=== PATIENT | male | born 1945 | race Caucasian/White ===

== ENCOUNTER 2018-08-18 16:59 | Inpatient (IN) | payer MEDICARE ==
[~2018-08-18] VITALS: Ht 172.7 cm; Wt 65.9 kg
[~2018-08-18 16:59] MED LIST: AMBIEN5 MG PO; COREG 3.1253.125 MG PO; ENDOCET 7.5/3251 TAB PO; FISH OIL 1,0001 CA1 PO; HYDROCODONE-APA1 TAB PO; MULTAQ400 MG PO; PRADAXA150 MG PO; PRISTIQ50 MG PO; VITAMIN B-122500 MCG PO; VITAMIN D31000 UNI2 PO; WELLBUTRIN SR150 MG PO; XANAX0.5 MG PO
[2018-08-18 17:48] LABS: BASOPHILS 0.9 % (0-2); EOSINOPHILS 4.3 % (0-7); HEMATOCRIT 41.1 % (42.0-54.0); HEMOGLOBIN 14.4 g/dL (13.5-17.5); IMMATURE GRANULOCYTES 0.1 % (0-5); MCH 34.7 pg (26.0-34.0); MEAN PLATELET VOLUME 9.6 fL (7.4-10.4); MONOCYTES 5.2 % (2-11); NEUTROPHILS 58.5 % (40-80); RBC 4.15 10x6/uL (4.20-6.10); RDW 11.9 % (11.5-14.5); WBC 6.9 10x3/uL (4.8-10.8)
[2018-08-18 18:01] LABS: PLATELET COUNT 277 10x3/uL (130-400)
[2018-08-18 18:05] LABS: ANION GAP 4.9 mmol/L (8-16); BILIRUBIN - TOTAL 0.91 mg/dL (0.2-1.3); CALCIUM 8.9 mg/dL (8.5-10.1); CARBON DIOXIDE 37.2 mmol/L (21.0-32.0); CREATININE - SERUM 1.2 mg/dL (0.6-1.3); MAGNESIUM - SERUM 2.5 mg/dL (1.8-2.4); POTASSIUM - SERUM 4.1 mmol/L (3.5-5.1); PROTEIN - SERUM 7.3 g/dL (6.4-8.2)
[2018-08-18 19:06] LABS: T4 THYROXINE 9.2 ug/dL (4.7-13.3); THYROID STIMULATING HORMONE 1.96 uIU/mL (0.36-3.74)
[2018-08-18 20:16] VITALS: BP 133/82; BMI 21.4
--- NOTE | 2018-08-18 21:11 | NUR ---
NEW ADMIT TO DOCTOR HERNANDEZ ON HALFWAY FROM [facility] FOR ALTERED MENTAL STATUS. PATIENT HAS BEEN EMOTIONALLY STRESSED, DEPRESSED, AND HAS BEEN HAVING SOME MEMORY ISSUES. UPON ARRIVAL TO UNIT, PATIENT IS CALM AND COOPERATIVE [facility] ADMISSION ASSESSMENT. COMPLAINS OF ANXIETY. CONSENT TO TREAT RECEIVED FROM GAYATHRI PRITCHETT, PATIENT'S AND POA. COPY OF POA PAPERWORK REQUESTED. CODE STATUS DISCUSSED WITH FAMILY. PATIENT IS A FULL CODE. CODE WORD IS REBA. INFORMATION ABOUT UNIT, PHONE CALLS, AND VISITATION GIVEN TO . PATIENT ORIENTED TO ROOM, UNIT, AND CALL SOMERS SYSTEM. PATIENT RESTING IN BED WITH EYES OPEN AT THIS TIME. CONTINUE TO MONITOR.
--- NOTE | 2018-08-18 21:16 | NUR ---
Patient given Ativan 0.5 mg PO for anxiety at 21:21.
--- NOTE | 2018-08-18 22:25 | NUR ---
REASSESS PATIENT, NO ANXIETY NOTED , PATIENT SLEEPING QUIETLY, RESPIRATIONS EVEN AND UNLABORED.
[2018-08-19 07:42] LABS: CHOL - HDL RATIO 2.1 ratio (2.3-4.9); LDL-HDL RATIO 0.9 ratio (1.5-3.5); THYROID STIMULATING HORMONE 1.9 uIU/mL (0.36-3.74)
[2018-08-19 08:00] VITALS: BP 127/85
[2018-08-19 10:42] VITALS: BMI 21.4
--- NOTE | 2018-08-19 11:00 | NUR ---
PATIENT IS AWAKE AND ALERT. CALM AND COOPERATIVE WITH CARE AND ASSESSMENT. MEDICATION COMPLIANT. NO AGGRESSION NOTED. REDIRECT AND REORIENT NEEDED. WILL CONTINUE POC.
[2018-08-19 14:37] VITALS: Ht 172.7 cm; Wt 65.9 kg
[2018-08-19 22:21] VITALS: BP 105/72
--- NOTE | 2018-08-20 02:00 | NUR ---
RECEIVED IN DAYROOM. SOCIALIZING WITH PEERS. CALM AND COOPERATIVE WITH CARE AND ASSESSMENT. NO ANXIETY. REDIRECT AND REORIENT NEEDED. RESTING IN BED WITH EYES CLOSED AT THIS TIME. CONTINUE PLAN OF CARE.
[2018-08-20 06:14] LABS: VITAMIN D 25 HYDROXY 32.1 ng/mL (30.0-100.0)
[2018-08-20 07:21] LABS: RAPID PLASMA REAGIN Non Reactive (Non Reactive)
[2018-08-20 09:08] VITALS: BP 118/62
--- NOTE | 2018-08-20 10:51 | NUR ---
SW ATTEMPTED PHONE CALL TO PT'S , ASHLEY, AT [phone] ON 08/19 AND 08/20 TO GET INFORMATION FOR ASSESSMENT. NO WAY TO LEAVE VOICEMAIL. PHONE CONTINUOUSLY RINGS.
--- NOTE | 2018-08-20 12:00 | NUR ---
B) The patient is pleasant, he is socializing with staff and peers. he ambulates independently. He has poor insight into his situation. I) Provide prescribed meds. Encourage groups and activities. R) The patient is compliant with his meds, he did ask what each pill is for and he is glad that he is taking them. P) Continue POC.
--- NOTE | 2018-08-20 14:46 | HP ---
PATIENT: KAROLINA PRITCHETT JR MEDICAL RECORD: [id number] ACCOUNT: [id number] LOCATION:[facility] Low[facility] : 43 ADMISSION DATE: 08/18/18 PCP: MYA FRANCOIS DO HISTORY AND PHYSICAL EXAMINATION IDENTIFYING DATA: The patient is 73 years old and he is admitted to the hospital on a voluntary basis. CHIEF COMPLAINT: Agitation. HISTORY OF PRESENT ILLNESS: The patient has been at home with his . He has an established diagnosis of dementia. Apparently, he has become quite confused and at times agitated. The primary care doctor contacted us and briefed this on the case and we approved him for admission after being medically cleared in the Emergency Room. The patient's symptoms have been present for at least a couple of years now. He has been diagnosed with a dementia in the past and has been treated for that. He denies any thoughts of harming himself or others. He freely admits that he has been very upset about not being able to drive and that there has been some conflicts with his over this. He denies that he would actively seek to harm himself or others. PAST MEDICAL HISTORY: Significant for atrial fibrillation and hypertension. PAST PSYCHIATRIC HISTORY: Significant for depression and anxiety along with the diagnosis of dementia. ALLERGIES: No known drug allergies. CURRENT MEDICATIONS: Include Pristiq, Coreg, Pradaxa, Endocet, Multaq, Wellbutrin and multiple vitamins. FAMILY HISTORY: Significant for hypertension and cancer. SOCIAL HISTORY: The patient is a nondrinker, nonsmoker. He is a retired [employer] employee. He has been to the same woman for many years and apparently has functioned well both socially and occupationally. MENTAL STATUS EXAMINATION: The patient is awake, alert and oriented to person, place and somewhat to time and situation. His mood is anxious. His affect is constricted. Thought processes are circumstantial. Memory, concentration, and abstraction abilities are at least moderately impaired and he denies any active intent to harm himself or others as well as active psychotic symptoms. ASSETS: Supportive family members. LIABILITIES: Limited insight. DIAGNOSTIC IMPRESSION: AXIS I: Vascular dementia. AXIS II: None. AXIS III: Atrial fibrillation, hypertension. AXIS IV: Moderate. AXIS V: Global assessment of functioning is 35. PLAN: At this time, the patient is admitted to the hospital for a comprehensive HISTORY AND PHYSICAL [id number] KAROLINA PRITCHETT JR medical, psychological, and social evaluation. He will be treated with both mood stabilizing and memory enhancing medications. His long-term prognosis is guarded. Brief supportive and educational interventions were made. TRANSINT:[id number] Voice Confirmation ID: [id number] DOCUMENT ID: [id number] FRANCIE HERNANDEZ MD at 1446 CC: [id number] DICTATION DATE: 08/19/18 164 CHOKE SETTER: 08/19/18 1704 ADM IN [place] [id number] [place] [id number]
--- NOTE | 2018-08-20 16:15 | NUR ---
The patient's spouse requested to speak to this nurse about the patient's medications. Did provide a printed MAR for her. She is concerned that the patient is off of his antidepressants. Did explain to her that staff and the Dr.'s are monitoring hoim closely and he does have as needed medications. The Dr.'s will prescribe medications as they need to based on the patient's behavior. We will continue to monitor and document. The patient said "I am concerned because he does have depression as do I from time to time." The patient also has chosen to take his wedding band home with her. Mavis Au the Dog Warden had it in her office and she did give it to the patient's spouse.
--- NOTE | 2018-08-20 19:45 | NUR ---
RECEIVED IN DAYROOM. SOCIALIZING WITH PEERS. CALM AND COOPERATIVE WITH CARE AND ASSESSMENT. PLEASANTLY CONFUSED. REDIRECT AND REORIENT NEEDED. CONTINUES TO SOCIALIZE WITH HIS PEERS AT THIS TIME. CONTINUE PLAN OF CARE.
[2018-08-20 20:11] VITALS: BP 127/82
[2018-08-21 08:44] LABS: APPEARANCE CLEAR (CLEAR); BILIRUBIN NEGATIVE (NEGATIVE); COLOR YELLOW (YELLOW); GLUCOSE NEGATIVE (NEGATIVE); KETONE NEGATIVE (NEGATIVE); NITRITE NEGATIVE (NEGATIVE); PROTEIN NEGATIVE (NEGATIVE); UROBILINOGEN NORMAL (NORMAL)
[2018-08-21 08:46] LABS: BACTERIA FEW /hpf (NONE SEEN); EPITHELIAL CELLS 0-5 /hpf (0-5); RED CELLS - URINE 0-5 /hpf (0-5); WHITE CELLS - URINE 0-5 /hpf (0-5)
[2018-08-21 09:37] VITALS: BP 132/89
--- NOTE | 2018-08-21 10:15 | NUR ---
The patients spouse said she would like to bring the patient a pair of jeans that fit him and his glasses. She will bring them in about an hour she stated.
[2018-08-21 11:12] LABS: UDS - AMPHET NEGATIVE QUAL (NEGATIVE); UDS - BARB NEGATIVE QUAL (NEGATIVE); UDS - BENZO NEGATIVE QUAL (NEGATIVE); UDS - COCAINE NEGATIVE QUAL (NEGATIVE); UDS - OPIATE NEGATIVE QUAL (NEGATIVE); UDS - PCP NEGATIVE QUAL (NEGATIVE); UDS - THC NEGATIVE QUAL (NEGATIVE)
--- NOTE | 2018-08-21 15:55 | PN ---
PATIENT:KAROLINA PRITCHETT JR MEDICAL RECORD: [id number] LOCATION:[facility] [address] ADMISSION DATE: 08/18/18 PROGRESS NOTE DATE OF SERVICE: 08/20/2018 SUBJECTIVE: The patient's case was discussed with staff. He has no new complaint. OBJECTIVE: The patient is in good behavioral control. He has not been aggressive. He has limited insight about his situation and certainly has significant cognitive impairment. ASSESSMENT: Vascular dementia. PLAN: The patient is going to be started on Aricept to assist with his cognitive impairment. He will be monitored for clinical changes associated with its use. TRANSINT:[id number] Voice Confirmation ID: [id number] DOCUMENT ID: [id number] FRANCIE HERNANDEZ MD at 1555 CC: [id number] DICTATION DATE: 08/20/18 1538 DENTAL DETAIL REPRESENTATIVE: 08/20/18 1556 ADM IN [place] [id number] [place] [id number]
[2018-08-21 19:47] VITALS: BP 131/72
--- NOTE | 2018-08-22 04:04 | NUR ---
B) Patient is alert and oriented to person and place, calm and cooperative, I) Administered scheduled medications as ordered, R) Mediation compliant, pleasant and friendly toward staff, P) Continue plan of care.
--- NOTE | 2018-08-22 07:35 | NUR ---
B) The patient is pleasant and polite, he says nice things to everyone. Compliments others on their behavior or their professionalism. He ambulates independently. He does have a sight limp. He has not shown any anxiety this am. I) Provide prescribed medications. Encourage positive coping skills when he becomes anxious. R) The patient is compliant with meds and unit milieu. P) Continue POC.
[2018-08-22 07:55] VITALS: BP 123/85
--- NOTE | 2018-08-22 11:38 | PN ---
PATIENT:KAROLINA PRITCHETT JR MEDICAL RECORD: [id number] LOCATION:[facility] ADMISSION DATE: 08/18/18 PROGRESS NOTE DATE OF SERVICE: 08/21/2018 SUBJECTIVE: The patient's case was discussed with staff. He has no new complaint. OBJECTIVE: The patient is in good behavioral control with limited insight about his condition. He tolerates his medicines reasonably well. He has not been aggressive. ASSESSMENT: Vascular dementia. PLAN: Supportive and educational interventions were made. Long-term prognosis is guarded. TRANSINT:[id number] Voice Confirmation ID: [id number] DOCUMENT ID: [id number] FRANCIE HERNANDEZ MD at 1138 CC: [id number] DICTATION DATE: 08/21/18 1637 DINKEY ENGINE MECHANIC: 08/21/[id number] ADM IN [place] [id number] [place] [address]
[2018-08-22] MEDS ORDERED: LYRICA75 MG PO (11:50)
[2018-08-22] MEDS ORDERED: DONEPEZIL HCL5 MG PO (11:50)
--- NOTE | 2018-08-22 11:50 | NUR ---
Dr. Avendano discharged the patient after he met with staff and the patient. Did call the patient's spouse and let her know the decision. She is a bit nervous. She wants him to come home, but she is concerned. She wants to know his prognosis and does he need a custodial etc. Did explain to her that at this time Dr. Avendano does not feel the need for a custodial. Explained to her that the disease is a progressing disease. Explained to her that she will need to speak to him in short concise sentences and not try to argue with him. Will go over some more teaching when she arrives.
--- NOTE | 2018-08-22 14:20 | NUR ---
The patient's spouse is here to pick the patient up, she is anxious about her next steps. Encouraged her to call the [employer] Overseer so that he can help her out with some financial knowledge. Also explained ways to speak to the patient and not to argue. Let her know she can bring the patient back if he does worsen or become aggrssive. Spoke to her about [facility], but she said "He tried it and did not like it." She said "I just don't know what to do, I've called everywhere." Acknowledged her frustration. Faxed d/c paperwork to Dr. Andujar, did go over the medications, encouraged to make an appt with Dr. Andujar within one week. His belongings are accounted for and given to the spouse. The patient is now d/c'd off of [facility].
--- NOTE | 2018-08-23 10:17 | PN ---
PATIENT:KAROLINA PRITCHETT JR MEDICAL RECORD: [id number] LOCATION:[facility] ADMISSION DATE: 08/18/18 PROGRESS NOTE DATE OF SERVICE: 08/22/2018 SUBJECTIVE: The patient's case was discussed with staff. He has no new complaint. OBJECTIVE: The patient has had no aggressive behavior. He is in good behavioral control. I see no evidence of acute dangerousness. ASSESSMENT: Vascular dementia. PLAN: The patient will be transitioned out of the hospital today. His long-term prognosis is guarded. Supportive and educational interventions were made. Followup is to be with his primary care physician. TRANSINT:[id number] Voice Confirmation ID: [id number] DOCUMENT ID: [id number] FRANCIE HERNANDEZ MD at 1017 CC: [id number] DICTATION DATE: 08/22/18 1149 COTTON ACREAGE MEASURER: 08/22/18 1205 DIS IN 08/22/18 [place] [address] [place] [address]
--- NOTE | 2018-08-25 15:50 | DS ---
PATIENT:KAROLINA PRITCHETT JR :41 MEDICAL RECORD: [id number] DISCHARGE SUMMARY ADMISSION DATE: 08/18/18 DISCHARGE DATE: 08/22/18 IDENTIFYING DATA: The patient is 73 years old and he is admitted to the hospital on a voluntary basis because of agitation. The patient had been at home with his . He has an established diagnosis of dementia. Apparently, he had become confused and on some occasions agitated with her. The primary care doctor contacted us and briefed us on the case and we approved him for admission after he was medically cleared in the Emergency Room. The patient's symptoms have been present for at least a couple of years now and he was diagnosed with dementia about a couple of years ago. He denied any thoughts of self-harm and any thoughts of harming others. He denied psychotic symptoms. He freely admitted that he had been upset and frustrated about not being able to drive and that he does have conflicts with his over various minor or insignificant things. He certainly had no psychotic symptoms or symptoms that were acutely dangerous to himself or others. HOSPITAL COURSE: The patient was admitted to the hospital and fully evaluated from both a medical, psychological, and social standpoint. He was treated with both memory enhancing and mood stabilizing medications and showed rapid improvement. It was subsequently felt that he was no longer an acute danger to himself or others. The patient and his did not want any kind of placement. They both wanted to live together in their own home and did not want to go to assisted living and did not want to be . He was sent home and was tolerating his medicines well. DISCHARGE DIAGNOSES: AXIS I: Vascular dementia. AXIS II: None. AXIS III: Atrial fibrillation, hypertension. AXIS IV: Moderate. AXIS V: Global Assessment Of Functioning is 40. PLAN: At the time of discharge, the patient was not acutely dangerous to himself or others. The was given fairly extensive instructions about how to handle him with various examples including not trying to argue him back, to remembering something he cannot remember, giving him very small tasks that can be completed independently rather than giving him an overall global task giving him a structure and consistency and predictability to his day and events. [facility]. The patient's long-term prognosis is guarded. Unfortunately, he has a progressive dementia and it will worsen. At this time, there is no evidence of acute dangerousness and followup will be with his primary care physician. TRANSINT:[id number] Voice Confirmation ID: [id number] DOCUMENT ID: [id number] DISCHARGE SUMMARY REPORT [id number] KAROLINA PRITCHETT JR, PETER MD at 1550 CC: [id number] DICTATION DATE: 08/24/18 1536 ECONOMICS FACULTY MEMBER: 08/25/18 0822 DIS IN 08/22/18 [place] [id number] [place] [id number]
== END 2018-08-22 14:20 | disposition home or self-care (01) | DRG 884 ==
LOC: D.ER 16:59 → D.PSYCH 19:28
PROVIDERS: Family Medicine; ADMIT Psychiatry & Neurology Psychiatry; ATTEND Psychiatry & Neurology Psychiatry
DX: F03.90 Unspecified dementia, unspecified severity, without behavioral disturbance, psychotic disturbance, mood disturbance, and anxiety (principal); F01.50 Vascular dementia, unspecified severity, without behavioral disturbance, psychotic disturbance, mood disturbance, and anxiety; F32.9 Major depressive disorder, single episode, unspecified; F41.9 Anxiety disorder, unspecified; E53.8 Deficiency of other specified B group vitamins; E55.9 Vitamin D deficiency, unspecified; I48.91 Unspecified atrial fibrillation; I10 Essential (primary) hypertension; G62.9 Polyneuropathy, unspecified

== ENCOUNTER 2018-12-31 12:13 | Inpatient (IN) | payer MEDICARE ==
[~2018-12-31] VITALS: Ht 167.6 cm; Wt 60.2 kg
[~2018-12-31 12:13] MED LIST changes: +DONEPEZIL HCL5 MG PO; +LYRICA75 MG PO
[2018-12-31 15:42] VITALS: BP 114/77
--- NOTE | 2018-12-31 18:44 | NUR ---
PATIENT ARRIVED TO UNIT AT 1400 VIA MODIFIED MOBILE NON-EMERGENCY MEDICAL TRANSPORTATION BY MILTON WRIGHT. PATIENT ARRIVE STABLE, WITH SUITCASE. PATIENT HAD MEDICATIONS IN SUITCASE. PATIENT HAD MEDICATIONS IN SUITCASE AND MEDICAITIONS WAS COUNTED AND WAS SENT TO PHARMACY. PT HAS GLASSES ON, DENTURES. PATIENT SKIN WAS WARM, DRY TO THE TOUCH. NO BRUISES NOTED. PATIENT WAS SENT BY KRISTIE GOLDSMITH FOR GETTING INTO OTHER PEOPLE CARS, PUTTING METAL IN THE MICROWAVE AND BLOWING UP A MEASUREMENT CUP ON THE STOVE WHILE LIVING AT [facility]. PT IS ALERT AND ORIENTED TO SELF ONLY. CONFUSION NOTED. PT IS PLESANT WITH STAFF. ASSESSMENT, VITALS AND WEIGHT OBTAINED. ADMIT WEIGHT 130.0 IBS. PATIENT CODEWORD: APS. PATIENT CODE STATUS IS FULL CODE NO PAPERS STATING OTHERWISE.
--- NOTE | 2018-12-31 18:44 | NUR ---
MEDS SENT TO PHARMACY.
--- NOTE | 2018-12-31 18:44 | NUR ---
PATIENT ARRIVED TO UNIT AT 1400 VIA MODIFIED MOBILE NON-EMERGENCY MEDICAL TRANSPORTATION BY MILTON WRIGHT. PATIENT ARRIVE STABLE, WITH SUITCASE. PATIENT HAD MEDICATIONS IN SUITCASE AND MEDICATIONS WAS COUNTED AND WAS SENT TO THE PHARMACY. PT HAS GLASSES ON, DENTURES. PATIENT SKIN AND DRY WARM TO THE TOUCH. NO BRUISES NOTED. PATIENT SENT BY KRISTIE FLORIAN FOR GETTING INTO OTHER PEOPLES CARS, PUTTING METAL INTO THE MICROWAVE AND BLOWING UP A MEASUREING CUP ON THE STOVE. PT IS ALERT AND ORIENTED TO SELF ONLY. PT IS PLESANT WITH STAFF. ASSESSMENT, VITALS AND WEIGHT OBTAINED. ADMIT WEIGHT 130.0 LBS. PATIENT CODE STATUS IS FULL NO PAPERWORK TO STATE OTHERWISE. CODEWORD: KRISTIE.
[2018-12-31 20:20] VITALS: BP 118/75
--- NOTE | 2019-01-01 04:08 | NUR ---
B.) PT IS ALERT AND ORIENTED TO SELF AND SITUATION. HE IS PLEASANT AND AMBULATES WITHOUT ASSISTANCE. HE IS ABLE TO MAKE NEEDS KNOWN. I.) REDIRECT OFTEN. PROVIDE PM MEDICATIONS. R.) VERBALIZES UNDERSTANDING. COMPLIANT WITH ALL MEDICATIONS. P.) CONTINUE PLAN OF CARE
[2019-01-01 07:57] LABS: BASOPHILS 0.3 % (0-2); EOSINOPHILS 3.4 % (0-7); HEMATOCRIT 42.8 % (42.0-54.0); HEMOGLOBIN 15.2 g/dL (13.5-17.5); IMMATURE GRANULOCYTES 0.1 % (0-5); LYMPHOCYTES 21.1 % (15-50); MCH 34.8 pg (26.0-34.0); MCHC 35.5 g/dL (31.0-37.0); MCV 97.9 fL (80.0-100.0); MONOCYTES 7.2 % (2-11); NEUTROPHILS 67.9 % (40-80); PLATELET COUNT 247 10x3/uL (130-400); RBC 4.37 10x6/uL (4.20-6.10); RDW 12.1 % (11.5-14.5); WBC 7.6 10x3/uL (4.8-10.8)
[2019-01-01 08:41] LABS: ALKALINE PHOSPHATASE 41 U/L (46-116); ALT (SGPT) 17 U/L (10-68); BILIRUBIN - TOTAL 1.45 mg/dL (0.2-1.3); CALC OSMOLALITY 284 mosm/kg (275-300); CALCIUM 8.9 mg/dL (8.5-10.1); CARBON DIOXIDE 30.4 mmol/L (21.0-32.0); CHLORIDE - SERUM 106 mmol/L (98-107); CHOL - HDL RATIO 2.4 ratio (2.3-4.9); CHOLESTEROL, TOTAL 203 mg/dL (0-200); GLUCOSE 99 mg/dL (74-106); HDL CHOLESTEROL 84 mg/dL (32-96); LDL CHOLESTEROL 107 mg/dL (0-100); LDL-HDL RATIO 1.3 ratio (1.5-3.5); POTASSIUM - SERUM 4.4 mmol/L (3.5-5.1); PROTEIN - SERUM 7.2 g/dL (6.4-8.2); SODIUM 142 mmol/L (136-145); TRIGLYCERIDE 64 mg/dL (30-200); UREA NITROGEN 17 mg/dL (7-18); eGFR NON AFRICAN AMERICAN 77 mL/min (90-120)
[2019-01-01 09:24] VITALS: BMI 19.2
[2019-01-01 09:36] VITALS: BP 104/73
[2019-01-01 16:42] VITALS: Ht 167.6 cm; Wt 60.2 kg
[2019-01-01 17:34] LABS: APPEARANCE CLEAR (CLEAR); COLOR YELLOW (YELLOW)
[2019-01-01 17:35] LABS: BILIRUBIN NEGATIVE (NEGATIVE); GLUCOSE NEGATIVE (NEGATIVE); KETONE NEGATIVE (NEGATIVE); NITRITE NEGATIVE (NEGATIVE); PROTEIN NEGATIVE (NEGATIVE); UROBILINOGEN NORMAL (NORMAL)
[2019-01-01 21:26] VITALS: BP 90/71
--- NOTE | 2019-01-01 21:33 | NUR ---
PATIENT IS CONFUSED AT TIMES, CAN MAKE NEEDS KNOWN, COMPLIANT WITH MEDS, WILL FOLLOW POC
--- NOTE | 2019-01-02 08:21 | NUR ---
B) The patient is awake and he is alert, he has poor short term memory recall and poor insight into his situation. He interacts well with staff. He does well with the unit milieu. He ambulates independently. I) Provide prescribed meds. R) The patient is compliant with meds. P) Continue POC.
[2019-01-02 19:05] VITALS: BP 113/74
[2019-01-02 20:36] VITALS: BP 110/71
--- NOTE | 2019-01-02 22:53 | NUR ---
PATIENT IS CONFUSED, PLEASANT, CAN MAKE NEEDS KNOW, HAS TO BE REDIRECTED AT TIMES. COMPLIANT WITH MEDS. WILL FOLLOW POC
[2019-01-03 08:00] VITALS: BP 103/74
--- NOTE | 2019-01-03 16:47 | NUR ---
PT IS AWAKE AND ALERT. CALM AND COOPERATIVE WITH ASSESSMENT. NO BEHAVIORS NOTED. MED COMPLIANT. REDIRECT AND REORIENT NEEDED. FALL PRECAUTIONS IN PLACE. [facility]IGH CPOC.
--- NOTE | 2019-01-03 20:29 | NUR ---
RECEIVED IN DAYROOM. SITTING IN A CHAIR WITH PEERS AT HIS SIDE. CALM AND COOPERATIVE WITH CARE AND ASSESSMENT. REDIRECT AND REORIENT NEEDED. CONTINUES TO SIT QUIETLY IN DAYROOM. CONTINUE PLAN OF CARE
[2019-01-03 22:48] VITALS: BP 95/38
[2019-01-04 08:00] VITALS: BP 106/70
--- NOTE | 2019-01-04 16:20 | NUR ---
PT IS AWAKE AND ALERT TO PERSON ONLY. CALM AND COOPERATIVE WITH ASSESSMENT. PT HAS STTEMPTED TO CHEEK MEDICATIONS AT TIMES. PT MEDS CRUSHED IN APPLESAUCE. PT TOLERATED WELL. PT IS VERY CONFUSED, HAS NO INSIGHT ABOUT SITUATION. REDIRECT AND REORIENT NEEDED. FALL PRECAUTIONS IN PLACE. WILL CPOC.
[2019-01-04 20:23] VITALS: BP 98/67
--- NOTE | 2019-01-04 22:10 | NUR ---
RECEIVED IN DAYROOM. SITTING IN A CHAIR WITH PEERS BY HIS SIDE. CALM AND COOPERATIVE WITH CARE AND ASSESSMENT. REDIRECT AND REORIENT NEEDED. CONTINUES TO SIT QUIETLY IN A CHAIR. CONTINUE PLAN OF CARE
[2019-01-05 08:00] VITALS: BP 105/65
--- NOTE | 2019-01-05 12:52 | NUR ---
PT IS AWAKE AND ALERT TO PERSON ONLY. PT IS VERY CONFUSED. PT ATTEMPTS TO CHEEK HIS MEDS AT TIMES. MEDS CRUSHED. CALM AND COOPERATIVE WITH ASSESSMENT. REDIRECT AND REORIENT NEEDED. FALL PRECAUTIONS IN PLACE. WILL CPOC.
[2019-01-05 20:10] VITALS: BP 148/75
--- NOTE | 2019-01-05 22:31 | NUR ---
RECEIVED IN DAYROOM. WALKING ABOUT AT TIMES SOCIALIZING WITH PEERS. CALM AND COOPERATIVE WITH CARE AND ASSESSMENT. CONFUSED. REDIRECT AND REORIENT NEEDED. RESTING IN BED WITH EYES CLOSED AT THIS TIME. CONTINUE PLAN OF CARE
[2019-01-06 09:11] VITALS: BP 123/75
--- NOTE | 2019-01-06 13:21 | NUR ---
PATIENT IS ALERT WITH CONFUSION NOTED. CALM AND COOPERATIVE WITH CARE AND ASSESSMENT. MEDICATION COMPLIANT. REDIRECT AND REORIENT NEEDED. NO BEHAVIORS NOTED. FALL PRECAUTIONS IN PLACE. WILL CPOC.
[2019-01-06 20:55] VITALS: BP 110/75
--- NOTE | 2019-01-07 01:40 | NUR ---
REC'D SITTING IN THE DAYROOM. DISORIENTED TO TIME. RELATES HE HAS DEMENTIA AND HAS TROUBLE REMEMBERING. RELATES HIS TOLD HIM HE IS NOT THE MAN SHE AND HAS NOT HAD CONTACT WITH HIM SINCE HIS ADMISSION. STILL AWARE OF HIS SURROUNDINGS HOWEVER DOES REALIZE HIS MEMORY IS NOT WHAT IT WAS. RELATES HE FEELS SHE IS SEEING SOMEONE ELSE. WOULD LIKE TO CALL AND SPEAK WITH HIS CHELDREN IF THE NUMBERS CAN BE FOUND. TOLD PATIENT WOULD CHECK WITH LUCY THE COMPUTER ANALYST AND SEE IF WE CAN FIND HIS CHILDREN'S PHONE NUMBER. PT RELATED HE SURE WOULD APPRECIATE IT. PLEASANT AND COOPERATIVE WITH UNIT [facility]. ADMINISTER MEDS PER ORDERS Q SHIFT AND MOMITOR COMPLIANCE. REORIENT NEEDED. MED COMPLIANT. REORIENTS HOWEVER IS FORGETFUL AND REQUIRES INTERMITTENT REORIENTATION. CONTINUE POC AND PROVIDE SAFE ENVIRONMENT.
--- NOTE | 2019-01-07 08:12 | NUR ---
B) The patient is calm, but he is confused. He has poor insight into his situation and he realizes his memory is poor. A female patient was getting to close to him and staff had to tell her to back away and that he was . The patient said "Yes, she's right I am , but probably not for long." brine process operator said that the patient told them that his told him that he was not the same man she and he said "I know I am not." He ambulates independently. I) Provide prescribed meds. R) The patient is compliant with meds and unit milieu. He needs encouragement to interact in groups and activities. P) Continue POC.
[2019-01-07 09:26] VITALS: BP 114/72
--- NOTE | 2019-01-07 12:37 | NUR ---
NUTRITION F/U PT TOLERATING REG DIET AND ENSURE WITH MEALS. 100% INTAKE. STABLE WT. WILL CONTINUE TO PROVIDE DIET/ENSURE AND MONITOR. RD FOLLOWING
[2019-01-07 20:01] VITALS: BP 97/71
--- NOTE | 2019-01-07 23:17 | NUR ---
PATIENT IS VERY CONFUSED, HAS TO SHOWN WHERE HIS ROOM IS DAILY, HE INTERACTED WITH ONE OTHER PATIENT THIS EVENING APPROPRIATELY, COMPLIANT WITH MEDS. GOOD AFFECT. WILL FOLLOW POC
--- NOTE | 2019-01-08 07:55 | NUR ---
B) The patient is awake and alert he is confused as he puts his clothes on wrong, shirts on his legs etc. He has poor insight into his situation. He is pleasant and has not shown any aggression. I) Provide prescribed meds. R) The patient is compliant with meds. P) Continue POC.
[2019-01-08 08:30] VITALS: BP 114/73
--- NOTE | 2019-01-08 14:54 | NUR ---
DR. ARORA ORDERED AN INGUINAL HERNIA TRUSS. FAXED AN ORDER TO [facility].
[2019-01-08 20:00] VITALS: BP 104/53
--- NOTE | 2019-01-09 00:30 | NUR ---
B.) PT IS ALERT AND ORIENTED TO SELF ONLY. HE HAS POOR INSIGHT INTO HIS SITUATION. HE IS PLEASANT WITH STAFF AND PEERS. HE IS ABLE TO AMBULATE BY HISELF. I.) PROVIDED PM MEDICATIONS. REDIRECT OFTEN. R.) COMPLIANT WITH ALL MEDICATIONS. EASY TO REDIRECT BUT QUICKLY BECOMES CONFUSED AGAIN. P.) CONTINUE PLAN OF CARE
--- NOTE | 2019-01-09 07:51 | NUR ---
B) The patient is awake and alert. He is pleasant and talkative with staff and peers. He ambulates independently. He is confused and has poor insight into his situation. He knows his name, but not place or time. I) Provide prescribed meds. R) The patient is compliant with meds and unit milieu. P) Continue POC.
[2019-01-09 08:00] VITALS: BP 112/72
--- NOTE | 2019-01-09 10:27 | NUR ---
Turner hayes came to see the patient and the associate says he will back in a little bit to bring the patient his hernia truss.
--- NOTE | 2019-01-09 15:56 | NUR ---
The family requests that the patient's fingernails be trimmed while he is calm. Will leave a note so that the staff can pass this message onto Patricia Joshi
[2019-01-09 21:05] VITALS: BP 106/68
--- NOTE | 2019-01-09 22:27 | NUR ---
B.) PT IS ALERT AND ORIENTED TO SELF AND SITUATION. HE IS ABLE TO AMBULATE WITHOUT ASSISTANCE. HE IS CALM, COOPERATIVE AND SOCIALIZING WITH PEERS. I.) PROVIDED PM MEDICATIONS. R.) COMPLIANT WITH ALL MEDICATIONS. P.) CONTINUE PLAN OF CARE
[2019-01-10 08:00] VITALS: BP 110/77
--- NOTE | 2019-01-10 15:00 | NUR ---
APPLIED HERNIA SUPPORT DEVICE TO ABDOMEN. PT C/O DISCOMFORT AND REFUSED TO KEEP DEVICE IN PLACE.
--- NOTE | 2019-01-10 15:31 | NUR ---
B) PATIENT IS ORIENTED TO SELF AND SITUATION. SHE AMBULATES INDEPENDENTLY. CALM AND COOPERATIVE WITH ASSESSMENT. SOCIALIZES WITH PEERS. I) ADMINISTER PRESCRIBED MEDICATIONS. REDIRECT AND REORIENT NEEDED. R) COMPLIANT WITH MEDICATIONS. P) CONTINUE PLAN OF CARE.
--- NOTE | 2019-01-10 20:24 | NUR ---
RECEIVED IN DAYROOM. SITTING IN A CHAIR WITH PEERS AT HIS SIDE. SOCIALIZING WITH PEERS AT TIMES. CALM AND COOPERATIVE WITH CARE AND ASSESSMENT. REDIRECT AND REORIENT NEEDED. CONTINUES TO SIT CALMLY IN DAYROOM. CONTINUE PLAN OF CARE
[2019-01-10 22:56] VITALS: BP 116/68
[2019-01-11 08:00] VITALS: BP 114/68
--- NOTE | 2019-01-11 09:00 | NUR ---
B) PATIENT IS AWAKE AND ALERT, BUT VERY CONFUSED. CALM AND COOPERATIVE WITH CARE AND ASSESSMENT. SOCIALIZES WITH PEERS. I) ADMINISTER PRESCRIBED MEDICATIONS AND REDIRECT AND REORIENT FREQUENTLY. R) COMPLIANT WITH TAKING MEDICATIONS. P) CONTINUE PLAN OF CARE.
--- NOTE | 2019-01-11 11:15 | NUR ---
DISCHARGED TO [facility] VIA [facility]. BELONGINGS COLLECTED AND SENT TO [facility]. REPORT CALLED TO ISI RUSS.
--- NOTE | 2019-01-11 12:23 | PN ---
PATIENT:KAROLINA HAM JR MEDICAL RECORD: [id number] LOCATION:[facility] ADMISSION DATE: 12/31/18 PROGRESS NOTE DATE OF SERVICE: 12/31/2018 SUBJECTIVE: Mr. Ham is a 73-year-old male, admitted yesterday. He lives in an assisted living with his and he has been wandering, putting metal in the microwave, noted increased confusion. The patient during interview was calm, pleasant, but confused. He was somewhat flirtatious. He stated that he knows that he has dementia that his has been increasingly stressed. When prompted about the wandering, he said, "yes, I have always have to walk and run and I wandered off and they could not find me." He denies suicidal or homicidal ideation, auditory or visual hallucinations. No delusions seem to be present. Sleeping 7.75 hours, ate 100% of last night's dinner. OBJECTIVE: VITAL SIGNS: 86, 18, 104/73 and a pulse ox of 91%, which is somewhat low compared to previous readings of 98. He seemed to ambulate on observation with no difficulty. ASSESSMENT: Unchanged. PLAN: We will work with the patient's and observe the patient's behavior and get the best possible discharge disposition for this patient. Case discussed with nursing, chart reviewed, and the patient interviewed. TRANSINT:[id number] Voice Confirmation ID: [id number] DOCUMENT ID: [id number] JASPREET MARY MD at 1223 CC: [id number] DICTATION DATE: 01/01/19 1237 DERRICK BUILDER: 01/01/19 2302 ADM IN [place] [id number] [place] [id number]
--- NOTE | 2019-01-11 12:24 | PN ---
PATIENT:KAROLINA HAM JR MEDICAL RECORD: [id number] LOCATION:[facility] ADMISSION DATE: 12/31/18 PROGRESS NOTE DATE OF SERVICE: 01/02/2019 SUBJECTIVE: Mr. Ham is a 73-year-old male who lives in the assisted living with his , but he has been frequently found wandering around. They have lost him several times. The patient again in his explanation says he just has a history of wandering around and that he forgets and realizes, it does cause his some stress; however. OBJECTIVE: On interview today, the patient is a very upbeat, pleasant and appropriate, but obviously with some severe memory deficits. Despite our multiple conversations yesterday, he did not know who I was. He slept 8-1/2 hours. He is eating 55, 40 and 100%. He is taking meds whole. His latest vital signs are 97.5, 76, 20, 90/71 and 96%. ASSESSMENT: Unchanged. PLAN: We will start Namenda 5 mg b.i.d. No known drug allergies per chart. We will continue to monitor for any exit seeking behaviors, but certainly considering the patient's lack of long-term memory and his very established and fast gait, we would recommend a locked nursing facility. Case discussed with nursing. Chart reviewed and the patient interviewed. TRANSINT:[id number] Voice Confirmation ID: [id number] DOCUMENT ID: [id number] JASPREET MARY MD at 1224 CC: [id number] DICTATION DATE: 01/02/19 1305 SAP BPC DEVELOPER: 01/02/19 1405 ADM IN [place] [id number] [place] [id number]
--- NOTE | 2019-01-11 12:25 | PN ---
PATIENT:KAROLINA HAM JR MEDICAL RECORD: [id number] LOCATION:[facility] ADMISSION DATE: 12/31/18 PROGRESS NOTE DATE OF SERVICE: 01/04/2019 SUBJECTIVE: Mr. Ham is a 73-year-old male who was admitted after he was found wandering putting metal in the microwave, increased confusion. Right now, apparently, he is at a very open assisted living. The patient has little short-term memory capacity. He, however, has a wonderful gait. He is pleasant and cooperative. He apparently was cheeking his meds, which the nurse caught today. When asked about that, he adamantly denied, but seemed even confused that he has had this talk earlier today. Slept 8 hours, eating 175% to 100%. Last bowel movement unknown as the patient is ambulatory and takes himself. ASSESSMENT: Unchanged. PLAN: Spoken the case with management today. The patient will need a locked unit as again he has no insight into why he does not need to take long walks by himself, but otherwise fairly cooperative. Case discussed with nursing. Chart reviewed and the patient interviewed. TRANSINT:[id number] Voice Confirmation ID: [id number] DOCUMENT ID: [id number] JASPREET MARY MD at 1225 CC: [id number] DICTATION DATE: 01/04/19 1455 HOG TENDER: 01/05/19 0047 ADM IN [facility] [address] [place] [address]
--- NOTE | 2019-01-11 12:26 | PN ---
PATIENT:KAROLINA HAM JR MEDICAL RECORD: [id number] LOCATION:[facility] ADMISSION DATE: 12/31/18 PROGRESS NOTE DATE OF SERVICE: 01/05/2019 SUBJECTIVE: Mr. Ham is a 73-year-old male who was admitted for wandering, putting metal in the microwave, increased confusion and an APS referral was made. The patient yesterday had insisted on trying to do his own dishes and apparently put all his food into the sink nearly clogging it. On interview today, he was as always calm and pleasant; however, quite confused. He thought it was 2020. He did not know the month, did not know what town we were in. He slept 8 hours. He did get p.r.n. Ativan yesterday for some restlessness towards in the evening. He is eating 100% of his meals. Last bowel movement was on the . ASSESSMENT: Unchanged. PLAN: We will continue current treatment regimen. I do believe considering the patient's quick ambulation, but clear confusion, he is going to need a locked unit. Case discussed with nursing, chart reviewed and the patient interviewed. TRANSINT:[id number] Voice Confirmation ID: [id number] DOCUMENT ID: [id number] JASPREET MARY MD at 1226 CC: [id number] DICTATION DATE: 01/05/19 1523 CORN PICKER: 01/06/19 [address] [facility] [address] [place] [address]
--- NOTE | 2019-01-11 12:28 | PN ---
PATIENT:KAROLINA HAM JR MEDICAL RECORD: [id number] LOCATION:[facility] ADMISSION DATE: 12/31/18 PROGRESS NOTE DATE OF SERVICE: 01/07/2019 SUBJECTIVE: Mr. Ham is a 73-year-old male. He was found wandering, putting metal in the microwave. APS is involved, but apparently contact with the has been little to none and patient states it is unlikely that she will respond at all. He is calm, pleasant, quite confused, although superficially looks and appears much better on the surface than what his actual cognition is. He slept 7.25 hours, eating 100% of all meals. Last bowel movement was on the . OBJECTIVE: VITAL SIGNS: 97.5/62/18/114/72/98%. ASSESSMENT: Unchanged. PLAN: Await APS help with disposition. The patient is clearly cognitively impaired to care for self and needs a locked facility considering his ease of ambulation. Case discussed with nursing, chart reviewed. The patient interviewed. TRANSINT:[id number] Voice Confirmation ID: [id number] DOCUMENT ID: [id number] JASPREET MARY MD at 1228 CC: [id number] DICTATION DATE: 01/07/19 1614 ENGLISH ADJUNCT FACULTY: 01/08/19 0135 ADM IN [place] [id number] [place] [address]
--- NOTE | 2019-01-11 12:28 | PN ---
PATIENT:KAROLINA HAM JR MEDICAL RECORD: [id number] LOCATION:[facility] ADMISSION DATE: 12/31/18 PROGRESS NOTE DATE OF SERVICE: 01/06/2019 SUBJECTIVE: Mr. Ham is a 73-year-old male who apparently was living with his , but she was unable to contain him. He is baseline confused, but at times gets more confused than others and he was wandering off, putting metal in the microwave. He continues to be confused. He does not know the year. He does not know where he is. He sometimes has an idea why he is here and is almost always calm and pleasant. We have not been able to get in touch with his and APS has been called for help with his position. He slept 6-1/2 hours, although he tells me, he was cold and he could not sleep as much as he wanted and eating 100% of meals. His last bowel movement was on the . OBJECTIVE: VITAL SIGNS: 97.9, 55, 18, 123/75, and 97%. ASSESSMENT: Unchanged. PLAN: Await APS involvement as the patient needs intermediate with a locked unit. Case discussed with nursing. Chart was reviewed and the patient interviewed. TRANSINT:[id number] Voice Confirmation ID: [id number] DOCUMENT ID: [id number] JASPREET MARY MD at 1228 CC: [id number] DICTATION DATE: 01/06/19 1051 RE ETCHER: 01/06/191948 ADM IN [place] [id number] [place] [address]
--- NOTE | 2019-01-11 12:28 | PN ---
PATIENT:KAROLINA HAM JR MEDICAL RECORD: [id number] LOCATION:[facility] ADMISSION DATE: 12/31/18 PROGRESS NOTE DATE OF SERVICE: 01/08/2019 SUBJECTIVE: Mr. Ham is a 73-year-old male who was found putting metal in the microwave, wandering, increased confusion. APS has been notified as apparently communication with the has not been successful. The patient is calm, pleasant. Nursing did report that he is getting slightly a little bit more paranoid in the last 24 hours a couple of incidents where he thought that clothing was not his or checking his pills. He slept 6.25 hours, eating 100% of meals. Last bowel movement on the . OBJECTIVE: VITAL SIGNS: 97.3, 57, 20, 114/73, and 97%. ASSESSMENT: Unchanged. PLAN: Continue present treatment plan. Await APS help with disposition of this gentleman as he does need a locked unit as he is quite ambulatory and more confused than his superficial pleasantness would initially reveal. Case was discussed with nursing, chart reviewed and patient interviewed. TRANSINT:[id number] Voice Confirmation ID: [id number] DOCUMENT ID: [id number] JASPREET MARY MD at 1228 CC: [id number] DICTATION DATE: 01/08/19 1324 PATIENT CENTERED CARE SPECIALIST: 01/08/19 1451 ADM IN [place] [id number] [place] [address]
--- NOTE | 2019-01-11 15:00 | NUR ---
PATIENTS , ASHLEY CALLED FROM [facility] WITH NURSE, PETRONA AND SPOKE WITH THIS NURSE REGARDING AN MEDICATIONS LEFT IN LUCY'S OFFICE. SHE SAYS SHE IS GOING TO COME TO [facility] INTERMEDIATE AND MACHINE GUIDE BASE WINDER THE 2 BAGS. (ONE BAG WITH LIST OF MEDICATIONS AND ONE WITH 8 BOTTLES OF PILLS.) SHE WAS UPSET THAT HER WAS DISCHARGED AND NOT ON HIS WELLBUTRIN AND PRISTQ. INFORMED HER THAT HE WAS SENT TO [facility] ON THE MEDICATIONS ON DISCHARGE LIST, WHICH WERE ORDERED ACCORDING TO HIS BEHVIORS THAT WE OBSERVED.
--- NOTE | 2019-01-12 10:18 | PN ---
PATIENT:KAROLINA HAM JR MEDICAL RECORD: [id number] LOCATION:[facility] ADMISSION DATE: 12/31/18 PROGRESS NOTE DATE OF SERVICE: 01/09/2019 SUBJECTIVE: Mr. Ham is a 73-year-old male who was brought in at APS request. He had been wandering putting metal in the microwave. There seemed to be little if any structural support from his and the assisted living he was at was simply unable to contain him. The patient is calm, pleasant and appropriate. He has been a little bit irritable by nursing report because he has been not sleeping as well. Drowsy in chair today; however, did know my name, which his memory does come and go. He slept 6.25 hours, eating 100%, 95%, and 100%. Last bowel movement 27th. PLAN: Due to the several nights of sleeping poorly, we will start trazodone low dose to see if we can improve his sleep quality. Anticipated discharge is soon as APS referral and placement can be found on a locked facility. Case discussed with nursing, chart reviewed, and the patient interviewed. TRANSINT:[id number] Voice Confirmation ID: [id number] DOCUMENT ID: [id number] JASPREET MARY MD at 1018 CC: [id number] DICTATION DATE: 01/11/19 1057 PLATFORM WORKER: 01/11/19 1239 DIS IN 01/11/19 [place] [id number] [place] [id number]
--- NOTE | 2019-01-12 10:18 | DS ---
PATIENT:KAROLINA HAM JR :41 MEDICAL RECORD: [id number] DISCHARGE SUMMARY ADMISSION DATE: 12/31/18 DISCHARGE DATE: 01/11/19 HOSPITAL COURSE: Mr. Ham is a 73-year-old male, who was admitted because of wandering. He wandered out of facility. He was putting metals in the microwave. The patient although calm and pleasant, he superficially looks better on interview than he really is. Throughout the course of his admission, he has been calm, pleasant, appropriate. Apparently, APS had to be called because his has not participating in his care and to my knowledge, she has not ever called up here. The patient had a brief period of trouble sleeping. Trazodone was started, but otherwise has been calm, pleasant, and confused. 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 His medications include trazodone 25 mg at bedtime, Pepcid 40 mg b.i.d., Namenda 5 mg b.i.d., Lyrica 75 daily, fish oil 1 cap daily, B12 at 2500 mcg daily, vitamin D 1000 units daily, Multaq 400 mg b.i.d., Aricept 5 mg at bedtime, Pradaxa 150 mg b.i.d., Coreg 3.125 b.i.d. Discharged to [facility] to their locked unit. Case discussed with nursing. Chart reviewed and patient reviewed. TRANSINT:[id number] Voice Confirmation ID: [id number] DOCUMENT ID: [id number] JASPREET MARY MD at 1018 CC: [id number] DICTATION DATE: 01/11/19 1159 PLASTER FOREMAN: 01/12/19 0739 DIS IN 01/11/19 [place] [address]
--- NOTE | 2019-01-13 15:47 | PSY ---
PATIENT NAME:KAROLINA PRITCHETT JR MEDICAL RECORD: [id number] : 41 LOCATION:[facility] ADMISSION DATE: 12/31/18 ACCOUNT: [id number] PSYCHIATRIC EVALUATION DATE OF EVALUATION: 12/31/18 IDENTIFYING DATA: The patient is 73 years old and he is known to me from previous clinical contact. CHIEF COMPLAINT: Agitation. HISTORY OF PRESENT ILLNESS: The patient lives in an assisted living center and he has been agitated and disruptive in a way that is potentially dangerous to others. The facility feels they can no longer safely keep him. His is wanting him to go to a jail. He unfortunately is almost completely and totally impaired. He is only oriented to person. PAST MEDICAL HISTORY: Significant for hypertension and atrial fibrillation. PAST PSYCHIATRIC HISTORY: Significant for depression and anxiety along with a diagnosis of dementia. FAMILY HISTORY: Significant for hypertension and cancer. ALLERGIES: No known drug allergies. CURRENT MEDICATIONS: Please see the admissions MAR. SOCIAL HISTORY: The patient does not drink or smoke. He is a retired [employer] employee. He has been to the same woman for many years and apparently functioned reasonably well socially and occupationally. MENTAL STATUS EXAMINATION: The patient is awake, alert and oriented to person and place, but not to time or situation. His mood is flat. His affect is appropriate. Thought processes are disorganized. Memory, concentration, and abstraction abilities are impaired and he denies any intent to harm himself or others as well as active psychotic symptoms. ASSETS: Supportive family members. LIABILITIES: Limited insight. DIAGNOSTIC IMPRESSION: AXIS I: Vascular dementia. AXIS II: None. AXIS III: Atrial fibrillation, hypertension. AXIS IV: Moderate. AXIS V: Global assessment of functioning is 35. PLAN: At this time, the patient is admitted to the hospital for a comprehensive medical, psychological, and social evaluation. He will be treated with both memory enhancing and mood stabilizing medications. His long-term prognosis is guarded. TRANSINT:[id number] Voice Confirmation ID: [id number] DOCUMENT ID: [id number] FRANCIE HERNANDEZ MD at 1547 CC: [id number] DICTATION DATE: 12/31/18 1512 STEREOTYPE MOLDER: 12/31/18 155 DIS IN 01/11/19 [place] [id number] [place] [address]
--- NOTE | 2019-01-14 14:53 | DS ---
PATIENT:KAROLINA PRITCHETT JR :41 MEDICAL RECORD: [id number] DISCHARGE SUMMARY ADMISSION DATE: 12/31/18 DISCHARGE DATE: 01/11/19 IDENTIFYING DATA: The patient is 73 years old and he is known to me from a previous clinical contact. The patient has been aggressive and lives in a local assisted living center. He has been disruptive in a way that is potentially dangerous to others. The facility feels they can no longer keep him there safely. His is wanting him to go to a alf. He is extremely impaired and only oriented to person. HOSPITAL COURSE: The patient was admitted to the hospital and fully evaluated from both a medical, psychological, and social standpoint. He was treated with both mood stabilizing and memory enhancing medications and showed significant improvement through the course of the hospitalization. The patient was subsequently transitioned out of the hospital and to a alf. DISCHARGE DIAGNOSES: Vascular dementia, atrial fibrillation, hypertension. PLAN: At the time of discharge, the patient was in good behavioral control. He had no evidence of acute or direct dangerousness. His long-term prognosis is guarded. He is to be seen on a followup basis by his primary care alf physician. TRANSINT:[id number] Voice Confirmation ID: [id number] DOCUMENT ID: [id number] FRANCIE HERNANDEZ MD at 1453 CC: [id number] DICTATION DATE: 01/13/191725 WINE AND SPIRITS CLERK: 01/14/19 0725 DIS IN 01/11/19 [place] [id number] [place] [id number]
== END 2019-01-11 11:15 | DRG 884 ==
LOC: D.PSYCH 12:13
PROVIDERS: ADMIT Psychiatry & Neurology Psychiatry; ATTEND Psychiatry & Neurology Psychiatry
DX: F01.51 Vascular dementia, unspecified severity, with behavioral disturbance (principal); I48.91 Unspecified atrial fibrillation; I10 Essential (primary) hypertension; G47.00 Insomnia, unspecified; F32.9 Major depressive disorder, single episode, unspecified; E55.9 Vitamin D deficiency, unspecified; E53.8 Deficiency of other specified B group vitamins; K21.9 Gastro-esophageal reflux disease without esophagitis; K40.90 Unilateral inguinal hernia, without obstruction or gangrene, not specified as recurrent